=== PATIENT | female | born 1940 | race Caucasian/White ===

== ENCOUNTER 2017-03-04 14:24 | Inpatient (IN) | payer MEDICARE ==
[2017-03-04] VITALS (15 sets, daily range): BP systolic 162–226; BP diastolic 89–134
[~2017-03-04] VITALS: Ht 160 cm; Wt 65.1 kg
[~2017-03-04 14:24] MED LIST: ALEVE220 MG PO; AMLODIPINE BES1 CAP PO; AMLODIPINE10 M2 PO; ASPIRIN325 M1 PO; ATORVASTATIN CA20 MG PO; BACTRIM DS 8001 TAB PO; CEFTIN500 MG PO; CHEWABLE ASPIRI81 MG PO; CIPRO 500MG TA500 MG PO; CRESTOR20 MG PO; HYDROCHLOROTHIA25 M1 PO; KEFLEX500 M1 PO; LISINOPRIL 20MG20 MG OR; LISINOPRIL 20MG20 MG PO; LOPRESSOR 25MG.25 MG PO; MEDROL 4MG. DOSE4 MG PO; MELOXICAM7.5 MG PO; METOPROLOL TART50 MG PO; METOPROLOL25 MG PO; MEVACOR20 MG PO; NITROFURANTOIN100 M4 PO; NITROSTAT 0.4M0.4 MG SL; NORVASC 5MG. TAB5 MG PO; PHENERGAN W/CO473 ML PO; PRAVASTATIN40 MG PO; VICODIN 5/500 T1 TAB PO; ZESTRIL40 M1 PO; ZESTRIL40 MG PO
--- NOTE | 2017-03-04 15:07 | Urgent Treatment Center Report ---
See Addendum History of Present Issue Date/Time Seen by Provider 03/04/17 3226 Visit Reason Pt arrived:Walked Presenting Problem:PT ADVISES HER B/P WAS ELEVATED THIS MORNING AND SHE WAS NOT FEELING GOOD PT B/P NOT ELEVATED AT THIS TIME. PT HAS TAKEN HER B/P MEDICINE EARLIER TODAY Location if Accident: Onset of symptoms date/time:/ or onset unknown for:MEDICAL HX UNKNOWN Have you (or family members/close friends) recently traveled outside the [facility]? N If Yes, where/when: Have you had exposure to infectious disease within the past month? TB? Other? Specify: Source patient, family Exam Limitations no limitations Comment 76-year-old female presents today for hypertension. 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 Patient is on blood pressure medicine and she supposed to be taking it twice a day but over the last couple months has only been taking it once a day. So this may give her her regular dose and by the time she presented to the urgent treatment Center her blood pressure was down. Patient states she just feels weak and tired. Has a history of 2 strokes and 2 cardiac blockages and family states only 20 percent of her kidney function ALLERGIES Coded Allergies: acetaminophen (From DARVOCET-N) (03/04/17) propoxyphene (10/26/16) Home Medications Reported Medications Metoprolol Tartrate (Lopressor) 25 MG PO BID #60 TAB History Medical History General CAD? No Angina: Yes [place]: Yes Hypertension? Yes Hyperlipidemia? Yes CHF? No DVT? No PE? No COPD? No Asthma? No Anemia? No GERD? No Gastric ulcers? No GI Bleed? No Hernia? No Thyroid Problems? No Hypothyroidism? No CVA? No Seizures? No Diabetes? No Renal Insuffiency? No UTI? Yes Stones? No BPH? No GB Disease: No Nephritic Syndrome? No Asplenia? No Hepatitis? No Sickle Cell Disease? No Arthritis? No Migraines? No Cataracts? Yes Glaucoma? No MRSA? No HIV? No TB? No Anxiety? No Depression? 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 Immunization HX DT/Tetanus > 10 Years Ago Flu Refused Pneumonia Refuses Surgical Hx Previous Surgery?Y LEFT HIP REPAIR LOLLY Appendix BILATERAL CATARACTS LT FOOT/LEG SURGERY AORTIC ANEURYSM Family History Family HX Diabetes Yes CAD Yes Hypertension Yes Hyperlipidemia No Cancer Yes TB Yes Social History Smoking Hx Smoker: Current Every Day Smoker Tobacco: Yes Type Cigarettes Packs/day 1 1/2 - 2 Packs Alcohol Alcohol: No Review of Systems All Other Systems Reviewed and Negative Constitutional see HPI, malaise, weakness Physical Exam Vital Signs Vital Signs Date Time Temp Pulse Resp B/P Pulse O2 O2 Flow FiO2 Ox Delivery Rate 03/04 1440 97.7 76 16 115/96 98 03/04 1428 97.7 76 16 115/96 98 - WBC >12,000 or <4,000 or 10% bands? 2 or more SIRS Criteria Met? B/P:115/96 MAP:102 Creatinine >2.0? UA output<0.5ml/kg/hr for 2 hrs? Platelet count >100,000? Lactate >2.0mmol/1? INR >1.2 or PTT > than 60 sec? Evidence of Organ Dysfunction? Provider documented clinical suspician of infection? Sepsis Criteria Count: 0 Sepsis Risk: General Appearance normal appearance, no apparent distress Respiratory Status Yes: trachea midline, chest symmetrical, non tender chest. No: respiratory distress. Lung Sounds bilateral: normal breath sounds, lungs clear. 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 No Results/Orders Laboratory Tests 03/04/17 1552: Urine Color YELLOW, Urine Appearance Clear, Urine pH 7.0, Ur Specific [place] 1.015, Urine Protein 30, Urine Ketones NEGATIVE, Urine Blood TRACE H, Urine Nitrate NEGATIVE, Urine Bilirubin NEGATIVE, Urine Urobilinogen 0.2, Ur Leukocyte Esterase NEGATIVE, Urine Glucose NEGATIVE 03/04/17 1500: Sodium 139, Potassium 4.3, Chloride 102, Carbon Dioxide 29, BUN 26 H, Creatinine 2.2 H, Estimated Creat Clear 24 L, Estimated GFR (MDRD) 22 L, Glucose 100, Calcium 8.8, Total Bilirubin 0.3, AST 15, ALT 16, Alkaline Phosphatase 179 H, Creatine Kinase 113, CK-MB (CK-2) Rel Index 1.4, CK and CKMB Interp 1.6, Troponin I 0.05, Total Protein 8.1, Albumin 3.7, Globulin 4.4 H, Albumin/Globulin Ratio 0.8 L, WBC 7.3, RBC 4.63, Hgb 13.1, Hct 39.3, MCV 84.8, RDW 13.6, Plt Count 271, MPV 7.5, Gran % 60.3, Gran # 4.4, Lymphocytes % 22.1, Monocytes % 5.7, Eosinophils % 10.8, Basophils % 1.1, Lymphocytes # 1.6, Monocytes # 0.4, Eosinophils # 0.8 H, Basophils # 0.1, PUBS MCHC 33.2, MCH 28.2 Orders Procedure Date/time Status [facility] URINE DIPSTICK 03/04 1552 Complete 12 LEAD EKG-BESSON (INITIAL) 03/04 1450 Active ELECTROCARDIOGRAM REQUEST 03/04 1449 Active CBC WITH AUTO DIFF 03/04 1449 Complete CARDIAC ENZYMES 03/04 1449 Complete CHEM 12 PROFILE 03/04 1449 Complete Consult MD Physician Consult Consult/PCP Jorge Time Called 1613 Reason Pt. Condition Comments Discussed labs, x-ray, patient's complaint with Dr. Patel Departure Departure Time of Disposition 1614 Disposition DC Home or Self Care(routine) Clinical Impression Primary Impression: HTN (hypertension) Qualifiers: Hypertension type: secondary to other renal disorders Qualified Code: I15.1 - Hypertension secondary to other renal disorders Condition STABLE Patient Instructions High Blood Pressure Additional Instructions Take medication as prescribed Discussion with patient on proper way of taking medication Informed family to monitor blood pressure at home and keep a log for the PCP Follow-up with PCP this week Symptoms worsen or do not improve return or be seen in the ER Discharge Counseling Counseled pt/family regarding diagnosis, test results, home care, follow up needs at 1616
[2017-03-04 15:13] LABS: HEMOGLOBIN 13.1 g/dL (12.2-16.2); LYMPH # 1.6 K/mm3 (0.7-4.5); LYMPH % 22.1 % (10-50.0)
--- NOTE | 2017-03-04 15:36 | RADIOLOGY REPORT PS360 ---
CHEST(2 VIEWS-NOT PORTABLE) COMPARISON: PA and lateral chest 09/24/2013 HISTORY: Generalized weakness TECHNIQUE: PA and lateral chest FINDINGS: The lung jose are well expanded. There are diffuse interstitial fibrotic changes in the right upper lobe and in retrospect liver probably present previously. There are slightly accentuated bronchovascular markings at the right base likely chronic in nature. The left lung field is well expanded and clear. There is prominent aortic tortuosity with mild generalized cardio megaly with is no evidence of failure. There are mild degenerative changes of the mid thoracic spine. There is an aortic stent seen at the lower edge of the field of view in the upper abdomen IMPRESSION: Stable generalized cardio megaly overall heart size unchanged from the previous study in 2013, chronic changes right lung as described, doubt pneumonic infiltrate
[2017-03-04 15:58] LABS: URINE BILIRUBIN - DIPSTICK NEGATIVE (NEG); URINE BLOOD TRACE (NEG)
[2017-03-04] MEDS ORDERED: NORVASC 10MG. T10 MG PO (16:41)
--- NOTE | 2017-03-04 19:14 | Emergency Room Report ---
History of Present Illness Time Seen by 1903 Presenting Problem in Triage Pt arrived:Walked Presenting Problem:PT ADVISES HER B/P WAS ELEVATED THIS MORNING AND SHE WAS NOT FEELING GOOD PT B/P NOT ELEVATED AT THIS TIME. 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 N Clinical Suspician of Infection? N Mental Status: 1 - Regular (Normal Baseline) Sepsis Risk:Low Sepsis Risk Have you (or family members/close friends) recently traveled outside the [place]? N If Yes, where/when: Have you had exposure to infectious disease within the past month? TB? Other? 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 Noted to be in the 220's systolic, recommendation from Dr. Pozo to admit on Nipride gtts. Patient checked her BP at home today and noted it to be elevated. ALLERGIES Coded Allergies: acetaminophen (From [employer]VO[employer]ven WirelessT-N) (03/04/17) propoxyphene (10/26/16) Home Medications Reported Medications Metoprolol Tartrate (Lopressor) 25 MG PO BID #60 TAB History Medical History General CAD? No Angina: Yes [place]: Yes Hypertension? Yes Hyperlipidemia? Yes CHF? No DVT? No PE? No COPD? No Asthma? No Anemia? No GERD? No Gastric ulcers? No GI Bleed? No Hernia? No Thyroid Problems? No Hypothyroidism? No CVA? No Seizures? No Diabetes? No Renal Insuffiency? No End Stage Renal Disease? No UTI? Yes Stones? No BPH? No GB Disease: No Nephritic Syndrome? No Asplenia? No Hepatitis? No Sickle Cell Disease? No Arthritis? No Migraines? No Cataracts? Yes Glaucoma? No MRSA? No HIV? No TB? No Anxiety? No Depression? 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 Immunization Hx DT/Tetanus > 10 Years Ago Flu Refused Pneumonia Refuses Surgical Hx Previous Surgery?Y LEFT HIP REPAIR LOLLY Appendix BILATERAL CATARACTS LT FOOT/LEG SURGERY AORTIC ANEURYSM Family History Family Hx Diabetes Yes CAD Yes Hypertension Yes Hyperlipidemia No Cancer Yes TB Yes Social History Smoking Hx Smoker: Current Every Day Smoker Tobacco: Yes Type Cigarettes Packs/day 1 1/2 - 2 Packs Alcohol Alcohol: No Review of Systems All Other Systems Reviewed and Negative Physical Exam Vital Signs Vital Signs Date Time Temp Pulse Resp B/P Pulse O2 O2 Flow FiO2 Ox Delivery Rate 03/04 1825 97.7 66 20 226/134 96 03/04 1756 97.7 66 20 226/134 96 03/04 1715 68 20 234/132 96 03/04 1630 57 18 222/114 96 03/04 1440 97.7 76 16 115/96 98 03/04 1428 97.7 76 16 115/96 98 General Appearance normal appearance, WD/WN, no apparent distress Eye Exam - bilateral eye normal exam, bilateral eye PERRL, bilateral eye EOMI Neck normal inspection, non-tender, supple, full range of motion Respiratory Status Yes: trachea midline, chest symmetrical, non tender chest. No: respiratory distress, tender on palpation, use of accessory muscles, pain on inspiration, pain on expiration, productive cough, non productive cough. Lung Sounds bilateral: normal breath sounds, lungs clear. 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 No Results/Orders Laboratory Tests 03/04/17 1552: Urine Color YELLOW, Urine Appearance Clear, Urine pH 7.0, Ur Specific [place] 1.015, Urine Protein 30, Urine Ketones NEGATIVE, Urine Blood TRACE H, Urine Nitrate NEGATIVE, Urine Bilirubin NEGATIVE, Urine Urobilinogen 0.2, Ur Leukocyte Esterase NEGATIVE, Urine Glucose NEGATIVE 03/04/17 1500: Sodium 139, Potassium 4.3, Chloride 102, Carbon Dioxide 29, BUN 26 H, Creatinine 2.2 H, Estimated Creat Clear 24 L, Estimated GFR (MDRD) 22 L, Glucose 100, Calcium 8.8, Total Bilirubin 0.3, AST 15, ALT 16, Alkaline Phosphatase 179 H, Creatine Kinase 113, CK-MB (CK-2) Rel Index 1.4, CK and CKMB Interp 1.6, Troponin I 0.05, Total Protein 8.1, Albumin 3.7, Globulin 4.4 H, Albumin/Globulin Ratio 0.8 L, WBC 7.3, RBC 4.63, Hgb 13.1, Hct 39.3, MCV 84.8, RDW 13.6, Plt Count 271, MPV 7.5, Gran % 60.3, Gran # 4.4, Lymphocytes % 22.1, Monocytes % 5.7, Eosinophils % 10.8, Basophils % 1.1, Lymphocytes # 1.6, Monocytes # 0.4, Eosinophils # 0.8 H, Basophils # 0.1, PUBS MCHC 33.2, MCH 28.2 Current Medication Orders Sig/Tl Start time Last Medication Dose Route Stop Time Status Admin Amlodipine Besylate 10 MG ONCE ONE 03/04 1645 DC 03/04 PO 03/04 1646 1653 Amlodipine Besylate 0 .STK-MED ONE 03/04 1642 DC .ROUTE Orders Procedure Date/time Status Decision to admit 03/04 1912 Active [facility] URINE DIPSTICK 03/04 1552 Complete 12 LEAD EKG-BESSON (INITIAL) 03/04 1450 Active ELECTROCARDIOGRAM REQUEST 03/04 1449 Active CBC WITH AUTO DIFF 03/04 1449 Complete CARDIAC ENZYMES 03/04 1449 Complete CHEM 12 PROFILE 03/04 1449 Complete CM/EKG CM/EKG EKG rate, NSR, rhythm, no evid. of ischemic chgs, no ectopy, normal QRS, normal [place], normal EKG (SB LVH no change from prior) XRAY/CT/US XRAY/CT/US XRAY chest XR interpretation by reviewed by me (report reviewed) Xray Results abnormal (CM per radiology o/w nl) Consult MD Physician Consult [address] Smyth service call ok to admit; please consult Dr. Pozo with cardiology Physician Consult 2 Time Called 1911 Reason Pt. Condition Comments Dr. Pozo confirms his recommendation for Nipride gtts and admit SDU. Progress ED Progress Notes Date 03/04/17 Time 1932 Comment BP 240 systolic; admit urgently to SDU with order for Nipride gtts. Departure Departure Time of Disposition 1911 Disposition Still a Patient Clinical Impression Primary Impression: Malignant hypertension Secondary Impressions: CRI (chronic renal insufficiency) Qualifiers: Chronic kidney disease stage: unspecified stage Qualified Code: N18.9 - Chronic kidney disease, unspecified Condition STABLE Additional Instructions Take medication as prescribed Discussion with patient on proper way of taking medication Informed family to monitor blood pressure at home and keep a log for the PCP Follow-up with PCP this week Symptoms worsen or do not improve return or be seen in the ER Prescriptions Current Visit Scripts AMLODIPINE BESYLATE (Norvasc) 10 MG PO DAILY 7 Days ED Critical Care Critical Care No at 1935
--- NOTE | 2017-03-04 19:14 | Emergency Room Report ---
History of Present Illness Time Seen by 1903 Presenting Problem in Triage Pt arrived:Walked Presenting Problem:PT ADVISES HER B/P WAS ELEVATED THIS MORNING AND SHE WAS NOT FEELING GOOD PT B/P NOT ELEVATED AT THIS TIME. 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 N Clinical Suspician of Infection? N Mental Status: 1 - Regular (Normal Baseline) Sepsis Risk:Low Sepsis Risk Have you (or family members/close friends) recently traveled outside the [place]? N If Yes, where/when: Have you had exposure to infectious disease within the past month? TB? Other? Specify: Transferred from [facility] due to malignant hypertension. Noted to be in the 220's systolic, recommendation from Dr. Pozo to admit on Nipride gtts. Patient checked her BP at home today and noted it to be elevated. ALLERGIES Coded Allergies: acetaminophen (From DARVOGotaCopyT-N) (03/04/17) propoxyphene (10/26/16) Home Medications Reported Medications Metoprolol Tartrate (Lopressor) 25 MG PO BID #60 TAB History Medical History General CAD? No Angina: Yes [place]: Yes Hypertension? Yes Hyperlipidemia? Yes CHF? No DVT? No PE? No COPD? No Asthma? No Anemia? No GERD? No Gastric ulcers? No GI Bleed? No Hernia? No Thyroid Problems? No Hypothyroidism? No CVA? No Seizures? No Diabetes? No Renal Insuffiency? No End Stage Renal Disease? No UTI? Yes Stones? No BPH? No GB Disease: No Nephritic Syndrome? No Asplenia? No Hepatitis? No Sickle Cell Disease? No Arthritis? No Migraines? No Cataracts? Yes Glaucoma? No MRSA? No HIV? No TB? No Anxiety? No Depression? 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 Immunization Hx DT/Tetanus > 10 Years Ago Flu Refused Pneumonia Refuses Surgical Hx Previous Surgery?Y LEFT HIP REPAIR LOLLY Appendix BILATERAL CATARACTS LT FOOT/LEG SURGERY AORTIC ANEURYSM Family History Family Hx Diabetes Yes CAD Yes Hypertension Yes Hyperlipidemia No Cancer Yes TB Yes Social History Smoking Hx Smoker: Current Every Day Smoker Tobacco: Yes Type Cigarettes Packs/day 1 1/2 - 2 Packs Alcohol Alcohol: No Review of Systems All Other Systems Reviewed and Negative Physical Exam Vital Signs Vital Signs Date Time Temp Pulse Resp B/P Pulse O2 O2 Flow FiO2 Ox Delivery Rate 03/04 1825 97.7 66 20 226/134 96 03/04 1756 97.7 66 20 226/134 96 03/04 1715 68 20 234/132 96 03/04 1630 57 18 222/114 96 03/04 1440 97.7 76 16 115/96 98 03/04 1428 97.7 76 16 115/96 98 General Appearance normal appearance, WD/WN, no apparent distress Eye Exam - bilateral eye normal exam, bilateral eye PERRL, bilateral eye EOMI Neck normal inspection, non-tender, supple, full range of motion Respiratory Status Yes: trachea midline, chest symmetrical, non tender chest. No: respiratory distress, tender on palpation, use of accessory muscles, pain on inspiration, pain on expiration, productive cough, non productive cough. Lung Sounds bilateral: normal breath sounds, lungs clear. 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 No Results/Orders Laboratory Tests 03/04/17 1552: Urine Color YELLOW, Urine Appearance Clear, Urine pH 7.0, Ur Specific [place] 1.015, Urine Protein 30, Urine Ketones NEGATIVE, Urine Blood TRACE H, Urine Nitrate NEGATIVE, Urine Bilirubin NEGATIVE, Urine Urobilinogen 0.2, Ur Leukocyte Esterase NEGATIVE, Urine Glucose NEGATIVE 03/04/17 1500: Sodium 139, Potassium 4.3, Chloride 102, Carbon Dioxide 29, BUN 26 H, Creatinine 2.2 H, Estimated Creat Clear 24 L, Estimated GFR (MDRD) 22 L, Glucose 100, Calcium 8.8, Total Bilirubin 0.3, AST 15, ALT 16, Alkaline Phosphatase 179 H, Creatine Kinase 113, CK-MB (CK-2) Rel Index 1.4, CK and CKMB Interp 1.6, Troponin I 0.05, Total Protein 8.1, Albumin 3.7, Globulin 4.4 H, Albumin/Globulin Ratio 0.8 L, WBC 7.3, RBC 4.63, Hgb 13.1, Hct 39.3, MCV 84.8, RDW 13.6, Plt Count 271, MPV 7.5, Gran % 60.3, Gran # 4.4, Lymphocytes % 22.1, Monocytes % 5.7, Eosinophils % 10.8, Basophils % 1.1, Lymphocytes # 1.6, Monocytes # 0.4, Eosinophils # 0.8 H, Basophils # 0.1, PUBS MCHC 33.2, MCH 28.2 Current Medication Orders Sig/Tl Start time Last Medication Dose Route Stop Time Status Admin Amlodipine Besylate 10 MG ONCE ONE 03/04 1645 DC 03/04 PO 03/04 1646 1653 Amlodipine Besylate 0 .STK-MED ONE 03/04 1642 DC .ROUTE Orders Procedure Date/time Status Decision to admit 03/04 1912 Active [facility] URINE DIPSTICK 03/04 1552 Complete 12 LEAD EKG-BESSON (INITIAL) 03/04 1450 Active ELECTROCARDIOGRAM REQUEST 03/04 1449 Active CBC WITH AUTO DIFF 03/04 1449 Complete CARDIAC ENZYMES 03/04 1449 Complete CHEM 12 PROFILE 03/04 1449 Complete CM/EKG CM/EKG EKG rate, NSR, rhythm, no evid. of ischemic chgs, no ectopy, normal QRS, normal [place], normal EKG (SB LVH no change from prior) XRAY/CT/US XRAY/CT/US XRAY chest XR interpretation by reviewed by me (report reviewed) Xray Results abnormal (CM per radiology o/w nl) Consult MD Physician Consult [address] Smyth service call ok to admit; please consult Dr. Pozo with cardiology Physician Consult 2 Time Called 1911 Reason Pt. Condition Comments Dr. Pozo confirms his recommendation for Nipride gtts and admit SDU. Progress ED Progress Notes Date 03/04/17 Time 1932 Comment BP 240 systolic; admit urgently to SDU with order for Nipride gtts. Departure Departure Time of Disposition 1911 Disposition Still a Patient Clinical Impression Primary Impression: Malignant hypertension Secondary Impressions: CRI (chronic renal insufficiency) Qualifiers: Chronic kidney disease stage: unspecified stage Qualified Code: N18.9 - Chronic kidney disease, unspecified Condition STABLE Additional Instructions Take medication as prescribed Discussion with patient on proper way of taking medication Informed family to monitor blood pressure at home and keep a log for the PCP Follow-up with PCP this week Symptoms worsen or do not improve return or be seen in the ER Prescriptions Current Visit Scripts AMLODIPINE BESYLATE (Norvasc) 10 MG PO DAILY 7 Days ED Critical Care Critical Care No at 1935
[2017-03-05] VITALS (47 sets, daily range): BP systolic 109–197; BP diastolic 62–117
[2017-03-05 06:27] LABS: HEMOGLOBIN 12.3 g/dL (12.2-16.2); LYMPH # 1.6 K/mm3 (0.7-4.5); LYMPH % 25.2 % (10-50.0)
--- NOTE | 2017-03-05 10:31 | HISTORY AND PHYSICAL REPORT ---
History and Physical (FCA) Date of admission: 03/04/17 Chief complaint: elevated blood pressure History: History of Present Illness: 76 year old female with a history of CAD and HTN presented to [facility] urgent treatment clinic yesterday complaining of elevated blood pressure. A home health nurse was visiting her home to see a different resident and the patient asked for her blood pressure to be checked due to not feeling well. BP was in the 240/120 range and she was instructed to come to the ER by the nurse. Patient has been followed by a Dr. Harrison in [facility] for her primary care. She had been using Metoprolol once daily to control her BP, but it had been prescribed twice daily. Patient is a former patient of Dr. Vo's at [facility] and would like to reestablish care due to recently moving back into the community. After arriving at the [facility], patient's BP was very elevated and was unable to be controlled with oral medication. Dr. Pozo was consulted and he recommened admission to [facility] with a Nitroprusside drip for BP control. Past Medical History: Medical History: CAD? Yes Angina: Yes CA: Yes Hypertension? Yes Hyperlipidemia? Yes CHF? No DVT? No PE? No COPD? Yes Asthma? No Anemia? No GERD? No Gastric ulcers? No GI Bleed? No Hernia? No Thyroid Problems? No Hypothyroidism? No Seizures? No Diabetes? No Renal Insuffiency? Yes UTI? Yes Stones? No BPH? No GB Disease: No Nephritic Syndrome? No Asplenia? No Hepatitis? No Sickle Cell Disease? No Arthritis? No Migraines? No Cataracts? Yes Glaucoma? No MRSA? No HIV? No TB? No Anxiety? No Depression? No Cancer? Yes Site: UTERINE Surgical history: Previous Surgery?Y LEFT HIP REPAIR LOLLY Appendix BILATERAL CATARACTS LT FOOT/LEG SURGERY AORTIC ANEURYSM Medications: Reported Medications Metoprolol Tartrate (Lopressor) 25 MG PO BID #60 TAB Allergies: Coded Allergies: acetaminophen (From DARVOCET-N) (03/04/17) propoxyphene (10/26/16) Family History: Family history: Postive for: CAD, HTN. Social History: Smoking Hx Tobacco: Yes Smoker: Current Every Day Smoker Type: Cigarettes Packs/day: < 1 Pack Are you exposed to second hand No Alcohol: Alcohol: No Hx of Drug Use: Drug Use? No Patient's support system is: good Review of Systems: Patient unresponsive? No Constitutional No: fatigue. ENT No: nose bleed. Cardiovascular No: chest pain. Respiratory No: productive cough (sputum). GI No: diarrhea, nausea, vomitting. (female) No: hematuria. Skin No: rash. Neurological Positive for: gait problem (for past 50 years). No: dizziness. Eyes No: vision loss. Musculoskeletal No: extremity swelling. Psychiatric No: anxious, depression. Physical Exam: Vital signs: Vital Signs Date Time Temp Pulse Resp B/P Pulse O2 O2 Flow FiO2 Ox Delivery Rate 03/05 1000 78 18 146/89 95 ROOM AIR 03/05 0900 84 18 147/79 94 ROOM AIR 03/05 0835 80 18 160/94 94 ROOM AIR 03/05 0835 97.6 60 16 178/95 97 / 0800 60 16 178/95 97 ROOM AIR 03/05 0800 60 16 178/95 97 / 0758 97.6 58 18 143/76 95 / 0723 97.6 / 0700 97.6 58 18 143/76 95 ROOM AIR 03/05 0615 56 22 135/78 92 ROOM AIR 03/05 0552 54 156/80 94 ROOM AIR 03/05 0535 76 109/62 93 ROOM AIR 03/05 0515 60 20 180/98 93 ROOM AIR / 0500 61 187/103 93 ROOM AIR / 0415 97.9 71 20 143/65 94 / 0315 61 20 143/65 94 ROOM AIR 03/05 0215 73 22 149/79 95 ROOM AIR / 0145 68 143/92 94 ROOM AIR / 0115 65 18 163/94 94 ROOM AIR / 0100 73 18 156/84 94 ROOM AIR / 0030 75 20 166/94 95 ROOM AIR 03/05 0010 98.4 77 20 154/82 96 ROOM AIR 03/04 2355 75 18 162/89 94 ROOM AIR 03/04 2340 80 20 171/104 97 ROOM AIR 03/04 2320 71 20 197/109 95 ROOM AIR / 2305 76 18 193/115 95 ROOM AIR 03/04 2250 67 18 193/107 94 ROOM AIR 03/04 2235 68 20 188/96 94 ROOM AIR 03/04 2220 66 22 196/105 95 ROOM AIR 03/04 2205 65 20 188/110 97 ROOM AIR 03/04 2200 67 22 200/114 97 ROOM AIR 03/04 2145 80 20 208/118 98 ROOM AIR 03/04 2144 72 03/04 2144 98.6 63 20 201/111 03/044 96 ROOM AIR 03/04 2140 98.6 84 18 207/113 97 ROOM AIR 03/045 98.6 77 18 218/121 96 ROOM AIR 03/04 2021 98.6 72 22 213/122 96 ROOM AIR 03/04 1949 97.7 79 14 194/100 97 03/04 1933 79 14 200/106 97 03/04 1825 97.7 66 20 226/134 96 03/04 1756 97.7 66 20 226/134 96 03/04 1715 68 20 234/132 96 03/04 1630 57 18 222/114 96 03/04 1440 97.7 76 16 115/96 98 03/04 1428 97.7 76 16 115/96 98 1ST Vital Signs Result Date Time Pulse Ox 98 03/04 1428 B/P 115/96 03/04 1428 Temp 97.7 03/04 1428 Pulse 76 03/04 1428 Resp 16 03/04 1428 O2 Delivery ROOM AIR 03/04 2021 Exam: General appearance: alert, awake, no acute distress Eyes: anicteric ENT: mucous membranes moist Neck: supple Cardiovascular: regular rate & rhythm Respiratory: good air movement, basilar rales (few) ABD: normal bowel sounds, soft, no tenderness Extremities: no peripheral edema (ANA PAULA hose in place) Skin: warm Lab data: Labs: Laboratory Tests 03/05/17 0530: Sodium 139, Potassium 3.6, Chloride 103, Carbon Dioxide 27, BUN 27 H, Creatinine 1.9 H, Estimated Creat Clear 25 L, Estimated GFR (MDRD) 26 L, Glucose 113 H, Calcium 9.0, WBC 6.2, RBC 4.42, Hgb 12.3, Hct 37.6, MCV 84.9, RDW 13.6, Plt Count 252, MPV 7.4, Gran % 53.3, Gran # 3.3, Lymphocytes % 25.2, Monocytes % 7.7, Eosinophils % 12.8 H, Basophils % 1.1, Lymphocytes # 1.6, Monocytes # 0.5, Eosinophils # 0.8 H, Basophils # 0.1, PUBS MCHC 32.6, MCH 27.7 03/04/17 1552: Urine Color YELLOW, Urine Appearance Clear, Urine pH 7.0, Ur Specific [place] 1.015, Urine Protein 30, Urine Ketones NEGATIVE, Urine Blood TRACE H, Urine Nitrate NEGATIVE, Urine Bilirubin NEGATIVE, Urine Urobilinogen 0.2, Ur Leukocyte Esterase NEGATIVE, Urine Glucose NEGATIVE 03/04/17 1500: Sodium 139, Potassium 4.3, Chloride 102, Carbon Dioxide 29, BUN 26 H, Creatinine 2.2 H, Estimated Creat Clear 24 L, Estimated GFR (MDRD) 22 L, Glucose 100, Calcium 8.8, Total Bilirubin 0.3, AST 15, ALT 16, Alkaline Phosphatase 179 H, Creatine Kinase 113, CK-MB (CK-2) Rel Index 1.4, CK and CKMB Interp 1.6, Troponin I 0.05, Total Protein 8.1, Albumin 3.7, Globulin 4.4 H, Albumin/Globulin Ratio 0.8 L, WBC 7.3, RBC 4.63, Hgb 13.1, Hct 39.3, MCV 84.8, RDW 13.6, Plt Count 271, MPV 7.5, Gran % 60.3, Gran # 4.4, Lymphocytes % 22.1, Monocytes % 5.7, Eosinophils % 10.8, Basophils % 1.1, Lymphocytes # 1.6, Monocytes # 0.4, Eosinophils # 0.8 H, Basophils # 0.1, PUBS MCHC 33.2, MCH 28.2 Diagnosis(es): 1. Malignant hypertensive urgency Status: Acute 2. CRI (chronic renal insufficiency) Status: Chronic 3. Coronary arteriosclerosis Status: Chronic 4. Nicotine dependence, uncomplicated Status: Chronic Plan: Patient admitted and treated per Dr. Pozo's direction. BP lower today will begin to transition to oral anti-hypertensive drugs. at 1030
[2017-03-06] VITALS (51 sets, daily range): BP systolic 123–199; BP diastolic 8–126
--- NOTE | 2017-03-06 08:16 | ACUTE CARE PROGRESS NOTE (QUA) ---
Progress Notes Subjective Date 03/06/17 Time 0813 Note Patient with no new complaints this morning. Nursing reports: Still on Nitroprusside drip Objective Findings Laboratory Tests 03/06/17 0440: Sodium 137, Potassium 4.2, Chloride 104, Carbon Dioxide 27, BUN 29 H, Creatinine 1.9 H, Estimated Creat Clear 25 L, Estimated GFR (MDRD) 26 L, Glucose 108 H, Calcium 9.0 Vital Signs Date Time Temp Pulse Resp B/P Pulse O2 O2 Flow FiO2 Ox Delivery Rate 03/06 0800 98.1 53 18 181/74 92 ROOM AIR 03/06 0800 56 16 139/78 93 ROOM AIR 03/06 0730 52 16 132/70 91 09/ 0730 52 16 132/70 91 ROOM AIR 03/06 0645 53 151/74 92 ROOM AIR 03/06 0615 58 191/110 95 ROOM AIR 03/06 0600 57 20 179/92 98 ROOM AIR 03/06 0500 57 20 140/71 94 ROOM AIR 03/06 0415 57 143/77 95 ROOM AIR 03/06 0400 97.9 58 20 159/85 95 ROOM AIR 03/06 0358 98.4 56 18 139/76 94 03/06 0330 59 147/71 93 ROOM AIR 03/06 0300 55 20 146/81 94 ROOM AIR 03/06 0245 57 144/79 94 ROOM AIR 03/06 0230 63 130/67 94 ROOM AIR 03/06 0215 58 149/81 95 ROOM AIR 03/06 0200 62 18 170/80 96 ROOM AIR 03/06 0145 69 146/66 94 ROOM AIR 03/06 0139 62 165/89 94 ROOM AIR 03/06 0115 65 190/126 94 ROOM AIR 03/06 0100 69 18 150/93 93 ROOM AIR 03/06 0030 60 148/85 94 ROOM AIR 03/06 0000 98.4 62 20 165/93 94 ROOM AIR 03/05 2345 67 195/117 96 ROOM AIR 03/05 2330 66 178/108 93 ROOM AIR 03/05 2315 62 158/80 95 ROOM AIR 03/05 2300 57 20 137/76 93 ROOM AIR 03/05 2245 57 139/74 92 ROOM AIR 03/05 2200 52 18 152/79 93 ROOM AIR 03/05 2115 58 158/91 96 ROOM AIR 03/05 2100 64 195/102 98 ROOM AIR 03/05 2000 98.3 61 22 159/88 94 ROOM AIR 03/05 1955 98.3 63 22 159/88 93 / 1905 59 16 143/76 93 03/05 1900 60 143/76 93 ROOM AIR 03/05 1800 68 18 160/90 94 ROOM AIR 03/05 1735 63 20 197/110 98 / 1700 61 20 181/103 96 03/05 1700 61 20 181/103 96 ROOM AIR 03/05 1640 63 20 180/102 97 / 1640 97.6 63 18 127/65 95 / 1637 63 18 180/102 97 ROOM AIR 03/05 1600 60 18 150/87 96 ROOM AIR 03/05 1500 68 18 159/89 96 ROOM AIR 03/05 1430 63 18 127/65 95 03/05 1400 60 18 131/68 95 ROOM AIR 03/05 1300 63 18 168/85 98 ROOM AIR 03/05 1225 66 18 168/114 97 03/05 1215 66 18 168/114 97 ROOM AIR 03/05 1200 65 18 145/79 94 ROOM AIR 03/05 1154 67 20 156/86 96 03/05 1121 77 20 140/81 95 03/05 1100 74 20 142/79 94 ROOM AIR 03/05 1000 78 18 146/89 95 ROOM AIR 03/05 0900 84 18 147/79 94 ROOM AIR 03/05 0835 80 18 160/94 94 ROOM AIR 03/05 0835 97.6 60 16 178/95 97 I&O Past 24 Hrs-ending at 0700 09/18 0700 Intake Total 1041 Output Total 500 Balance 541 Last VS-Temp:97.9 B/P:139/78 Pulse:56 Resp:16 SaO2:93 ROOM AIR Last weight lbs:143 oz:2 K.92 Method:Bed Scales Exam General appearance: alert, awake, no acute distress ENT: mucous membranes moist Cardiovascular: regular rate & rhythm Respiratory: clear to auscultation Extremities: no peripheral edema (ANA PAULA hose in place) Assessment/Plan Problem List 1. Malignant hypertensive urgency Status: Acute 2. CRI (chronic renal insufficiency) Status: Chronic 3. Coronary arteriosclerosis Status: Chronic 4. Nicotine dependence, uncomplicated Status: Chronic This inpt stay is expected to cross 2 MNs from start of care Yes Comments: Continue current treatment, await cardiology recommendations. at 0815
--- NOTE | 2017-03-06 11:42 | CONSULT NOTE ---
Standard Demographics Patient Demo Date of Consultation: 03/06/17 Referring Provider: Srinivas Smyth MD Reason for Consultation: Malignant HTN PRIMARY DIAGNOSIS: MALIGNANT HYPERTENSION Problem list Problem list: 1. History of coronary artery disease. A. abnormal stress test, 04/2010, with inferolateral ischemia. B. Cardiac catheterization, 04/2010, Dr. Mcfarland, unsuccessful attempt at opening chronic RCA occlusion. Left anterior descending stenosis of 40-50 percent noted. Normal LV function. C. Cardiac catheterization, 10/2014, Dr. Doug Pozo, chronic RCA occlusion with LEFT to RIGHT collaterals. Medical therapy recommended. Abdominal aortogram performed at the same time, normal renal arteries noted. Tortuous aorta with aneurysm noted, referred to Dr. Rivera for further evaluation 2. Hypertension. 3. Hyperlipidemia. 4. Hypothyroidism. 5. History of uterine cancer. 6. History of mild carotid disease with 20-49% right internal carotid stenosis , 05/2010. 7. Ongoing tobacco abuse, currently smoking only 3-4 cigarettes a day. 8. CKD, stage 3 A. Atrophy of right kidney, CT of abdomen, 10/2016 B. Normal renal arteries by cath, 10/2014 9. PAD A. Aortoiliac stenting, 2014 10. Abnormal electrocardiogram with left ventricular hypertrophy and poor R wave progression anteriorly History of present illness: History of present illness: 76-year-old white female admitted for malignant hypertension. Patient has had a two-week history of headaches and blurred vision. She recently moved in with her daughter in this area about 5 weeks ago and they have not been checking her blood pressure. Home health nurse was at the house for different person and was asked to check the blood pressure of frida Vee. Blood pressure noted to be in the 230/120 range with recommendation to come to the emergency department for evaluation. Patient was started on nitroglycerin drip after consultation by phone with Dr. Pozo. Patient is not forthcoming with any chest discomfort prior to admission. She denies any chest pain since admission. Initial troponin was in normal range. Electrocardiogram shows sinus rhythm with LEFT axis deviation and left ventricular hypertrophy with repolarization abnormality. Etiology consulted for evaluation and recommendations. Patient remains on nipride drip. Telemetry shows brief bradycardia into the high 30s to low 40s at times. Past Medical History: General: Hypertension Yes Seizures No TB No COPD Yes Asthma No Diabetes No Angina Yes MD Yes Hyperlipidemia Yes Urinary No Cancer Yes Rheumatic H.D. No Ulcers No MRSA No GB Disease No Past Surgical HX: Previous Surgery?Y LEFT HIP REPAIR LOLLY Appendix BILATERAL CATARACTS LT FOOT/LEG SURGERY AORTIC ANEURYSM Allergies Coded Allergies: acetaminophen (From DARVOCET-N) (03/04/17) propoxyphene (10/26/16) Home medications: Reported Medications Metoprolol Tartrate (Lopressor) 25 MG PO BID #60 TAB Current Medications: Current Medications Amlodipine Besylate 10 MG BID PO Amlodipine Besylate 10 MG ONCE ONE PO (DC) Amlodipine Besylate 0 .STK-MED ONE .ROUTE (DC) Amlodipine Besylate 10 MG DAILY PO (DC) Acetaminophen 500 MG Q4HP PRN PO (CKD) Metoprolol Tartrate 25 MG BID PO Sodium Chloride 10 ML PRN PRN IV Sodium Nitroprusside 50 MG .Q25H IV Dextrose/Water 250 ML Immunization HX DT/Tetanus > 10 Years Flu Refused Pneumonia Refuses TB Test in last year No Family history Family HX Family Hx Insignificant No Diabetes Yes CAD Yes Hypertension Yes Hyperlipidemia No Cancer Yes TB Yes Social Hx: Smoking HX Tobacco Yes Type Cigarettes Packs/day < 1 PACK Are you/the child exposed to second-hand smoke: No Alcohol Alcohol: No Hx of Drug Use Drug Use? No Review of systems: Constitutional weakness. Respiratory SOB with excertion. Cardiovascular see HPI, chest pain Gastrointestinal/Abdominal No no symptoms reported Genitourinary No: no symptoms reported. Musculoskeletal other (chronic lower extremity discom). Neurological No: no symptoms reported. Exam: Admission Vital Signs: 1ST Vital Signs Result Date Time Pulse Ox 98 03/04 1428 B/P 115/96 03/04 1428 Temp 97.7 03/04 1428 Pulse 76 03/04 1428 Resp 16 03/04 1428 O2 Delivery ROOM AIR 03/04 2021 Last Vital Signs: Vital Signs Result Date Time Pulse Ox 95 03/06 1115 B/P 182/122 03/06 1115 Pulse 74 03/06 1115 Resp 18 03/06 1115 O2 Delivery ROOM AIR 03/06 1115 Temp 98.1 03/06 0834 Exam General appearance: alert, awake, no acute distress Neck: no carotid bruit, no JVD Cardiovascular: regular rate & rhythm, no murmur Respiratory: clear to auscultation, good air movement ABD: soft, no tenderness Extremities: moves all, no peripheral edema Neuro: alert, intact, oriented Laboratory data: Laboratory Tests 03/06/17 0440: Sodium 137, Potassium 4.2, Chloride 104, Carbon Dioxide 27, BUN 29 H, Creatinine 1.9 H, Estimated Creat Clear 25 L, Estimated GFR (MDRD) 26 L, Glucose 108 H, Calcium 9.0 03/05/17 0530: Triglycerides 118, Cholesterol 199, LDL Cholesterol 124.4, VLDL Cholesterol 23.6 , HDL Cholesterol 51.0, TSH 2.43 03/05/17 0530: Sodium 139, Potassium 3.6, Chloride 103, Carbon Dioxide 27, BUN 27 H, Creatinine 1.9 H, Estimated Creat Clear 25 L, Estimated GFR (MDRD) 26 L, Glucose 113 H, Calcium 9.0, WBC 6.2, RBC 4.42, Hgb 12.3, Hct 37.6, MCV 84.9, RDW 13.6, Plt Count 252, MPV 7.4, Gran % 53.3, Gran # 3.3, Lymphocytes % 25.2, Monocytes % 7.7, Eosinophils % 12.8 H, Basophils % 1.1, Lymphocytes # 1.6, Monocytes # 0.5, Eosinophils # 0.8 H, Basophils # 0.1, PUBS MCHC 32.6, MCH 27.7 03/04/17 1552: Urine Color YELLOW, Urine Appearance Clear, Urine pH 7.0, Ur Specific [place] 1.015, Urine Protein 30, Urine Ketones NEGATIVE, Urine Blood TRACE H, Urine Nitrate NEGATIVE, Urine Bilirubin NEGATIVE, Urine Urobilinogen 0.2, Ur Leukocyte Esterase NEGATIVE, Urine Glucose NEGATIVE 03/04/17 1500: Sodium 139, Potassium 4.3, Chloride 102, Carbon Dioxide 29, BUN 26 H, Creatinine 2.2 H, Estimated Creat Clear 24 L, Estimated GFR (MDRD) 22 L, Glucose 100, Calcium 8.8, Total Bilirubin 0.3, AST 15, ALT 16, Alkaline Phosphatase 179 H, Creatine Kinase 113, CK-MB (CK-2) Rel Index 1.4, CK and CKMB Interp 1.6, Troponin I 0.05, Total Protein 8.1, Albumin 3.7, Globulin 4.4 H, Albumin/Globulin Ratio 0.8 L, WBC 7.3, RBC 4.63, Hgb 13.1, Hct 39.3, MCV 84.8, RDW 13.6, Plt Count 271, MPV 7.5, Gran % 60.3, Gran # 4.4, Lymphocytes % 22.1, Monocytes % 5.7, Eosinophils % 10.8, Basophils % 1.1, Lymphocytes # 1.6, Monocytes # 0.4, Eosinophils # 0.8 H, Basophils # 0.1, PUBS MCHC 33.2, MCH 28.2 Plan: Assessment: 1. Malignant hypertension, currently on nitroprusside drip 2. Known coronary artery disease, clinically stable 3. Continued tobacco use, nicotine patches recommended. 4. History of peripheral arterial disease status post aorto iliac stenting 5. Chronic kidney disease, stage III with recent CT of the abdomen showing RIGHT kidney atrophy Recommendations: 1. Increase Norvasc to 10 mg twice a day. 2. Add hydrochlorothiazide 50 mg daily. 3. Will change metoprolol to Coreg 6.25 mg twice a day and titrate up as blood pressure and pulse allow. 4. We'll obtain an echocardiogram to evaluate LEFT ventricular size, function and valve status. at 0731
[2017-03-07] VITALS (32 sets, daily range): BP systolic 118–171; BP diastolic 70–98
--- NOTE | 2017-03-07 05:48 | RADIOLOGY REPORT PS360 ---
ECHO ADULT PROCEDURE: INDICATIONS FOR THE TEST: Chest pain COPDX Heart Murmur Tobacco SmokingX Palpitations Fatigue Syncope Edema HypertensionXDiabetes Mellitus Rheumatic Fever SOB HOOKER Obesity HyperlipidemiaX Family History HD Additional History PAD PATIENT INFORMATION HEIGHT: 63 WEIGHT:143 GENDER: Female B/P:182/122 2-D/M-MODE INTERPRETATION: 2-D MEASUREMENTS OBSERVED VALUES IN CMS Right Ventricular Dimension (RVDd) 1.8 Interventricular Septum (Thickness)(IVsd) 1.4 Left Ventricular Internal Dimensions(LVIDd) 6.0 Left Ventricular Posterior Wall (Thickness)(LVPWd) 1.2 Aortic Root 3.3 Aortic Cusp Separation 1.9 Left Atrial Dimensions (LAD) 3.7 2D 1. Left atrium is mildly enlarged, left ventricle is mildly dilated, there is mild concentric left ventricular hypertrophy present, visually estimated ejection fraction approximately 40%, left ventricle is mildly globally hypokinetic. 2. The right atrium and right ventricle are relatively normal size and function. 3. The aortic valve is thickened and calcified, leaflet continue to display mobility. 4. The mitral and tricuspid valve leaflets are minimally thickened. 5. The pulmonic valve is poorly visualized. 6. No significant pericardial effusion noted. DOPPLER INTERROGATION: Doppler interrogation of the aortic, mitral and tricuspid valve reveals presence of mild mitral and tricuspid regurgitation, tricuspid regurgitant jet velocity is insufficient for calculation of the right ventricular systolic pressure, grade 1 diastolic dysfunction seen without tissue Doppler evidence of raised left atrial pressure. CONCLUSION: 1. Mildly enlarged left atrium, mildly dilated left ventricle, visually estimated ejection fraction 40%, left ventricle is mildly globally hypokinetic, there is mild concentric left ventricular hypertrophy present, grade 1 diastolic dysfunction seen without tissue Doppler evidence of raised left atrial pressure. 2. Thickened and calcified aortic valve without aortic stenosis aortic insufficiency. 3. Mild mitral and tricuspid regurgitation. 4. No significant pericardial effusion noted.
--- NOTE | 2017-03-07 07:35 | ACUTE CARE PROGRESS NOTE (QUA) ---
Progress Notes Subjective Date 03/07/17 Time 0732 Note 76 yo WF in bed in NAD. Slept well overnight. No chest pain or SOA. Nursing relates weaning down on Nipride but still on low dose. Objective Findings Last VS-Temp:98.1 B/P:160/86 Pulse:58 Resp:16 SaO2:93 ROOM AIR Last weight lbs:143 oz:8 K.091 Method:Bed Scales Exam General appearance: alert, awake, no acute distress Cardiovascular: regular rate & rhythm Respiratory: clear to auscultation Extremities: moves all, no peripheral edema Neuro: alert, intact, oriented Reviewed: medications, vital signs, lab results Assessment/Plan Problem List 1. Malignant hypertensive urgency Status: Acute Assessment/Plan: Improving on medication changes. Push to get off nipride today. 2. CRI (chronic renal insufficiency) Status: Chronic Assessment/Plan: Stable. Repeat BMP in AM. Avoiding ERASTO/ARB due to CKD stage 3. Qualifiers: Chronic kidney disease stage: unspecified stage Qualified Code: N18.9 - Chronic kidney disease, unspecified 3. Coronary arteriosclerosis Status: Chronic Assessment/Plan: Clinically stable. 4. Nicotine dependence, uncomplicated Status: Chronic 5. Cardiomyopathy due to hypertension Assessment/Plan: Metoprolol switched to coreg yesterday. Qualifiers: Heart failure presence: without heart failure Qualified Code: I11.9 - Hypertensive heart disease without heart failure 6. Hyperlipidemia Assessment/Plan: start statin Qualifiers: Hyperlipidemia type: mixed hyperlipidemia Qualified Code: E78.2 - Mixed hyperlipidemia Patient condition Stable Plan: start statin. Continue current HTN meds and try to get off nipride. This inpt stay is expected to cross 2 MNs from start of care Yes at 0741
--- NOTE | 2017-03-07 08:27 | ACUTE CARE PROGRESS NOTE (QUA) ---
Progress Notes Subjective Date 03/07/17 Time 0825 Note Patient fels much better today, no new complaints. Objective Findings Vital Signs Date Time Temp Pulse Resp B/P Pulse O2 O2 Flow FiO2 Ox Delivery Rate 03/07 0640 98.1 58 16 160/86 93 03/07 0600 98.1 58 16 161/80 93 ROOM AIR 03/07 0508 98.0 54 17 122/74 93 09/ 0500 54 17 122/74 93 ROOM AIR 03/07 0421 98.0 63 20 118/72 92 03/07 0416 98.0 63 20 118/72 92 ROOM AIR 03/07 0300 97.9 60 18 146/84 93 ROOM AIR 03/07 0300 97.9 60 18 146/84 93 03/07 0200 97.9 57 20 135/76 91 09/ 0200 57 20 135/76 91 ROOM AIR 03/07 0100 97.9 59 20 150/90 94 ROOM AIR 03/07 0000 98.2 65 17 127/77 94 09/ 0000 65 17 127/77 94 ROOM AIR 03/06 2300 65 20 142/86 91 ROOM AIR 03/06 2200 98.2 60 20 137/82 90 09/18 2200 60 20 137/82 90 ROOM AIR 18 2100 70 20 141/83 90 ROOM AIR 18 2045 98.2 65 20 176/93 94 /18 2045 65 20 176/93 94 ROOM AIR 03/06 2000 98.2 64 20 145/77 94 09/18 1999 98.2 64 20 145/77 94 ROOM AIR 03/06 1959 98.2 64 20 135/77 91 09/18 1900 61 18 145/80 93 ROOM AIR 18 1800 84 18 150/92 96 09/18 1800 75 18 150/92 95 ROOM AIR 09/18 1752 64 18 190/99 94 09/18 1745 64 18 173/99 95 ROOM AIR /18 1745 64 18 173/99 95 09/18 1630 98.2 65 18 143/77 96 09/18 1600 98.2 55 20 134/79 94 ROOM AIR /18 1500 60 18 156/77 96 ROOM AIR 09/18 1445 66 18 165/95 94 09/18 1430 63 18 123/8 95 09/18 1415 61 18 165/95 95 09/18 1400 59 18 138/79 95 ROOM AIR /18 1300 58 18 153/101 96 ROOM AIR 18 1243 52 18 149/80 95 ROOM AIR /18 1230 56 18 135/74 94 09/18 1230 56 18 135/74 94 ROOM AIR /18 1205 69 18 199/116 96 09/18 1205 69 18 199/116 96 09/18 1200 98.4 09/18 1115 74 18 182/122 95 09/18 1115 74 18 182/122 95 ROOM AIR /18 1112 70 18 170/98 95 09/18 1100 70 18 170/98 95 09/18 1039 72 18 150/113 93 09/18 1039 72 18 150/113 93 ROOM AIR 03/06 1030 38 140/103 95 ROOM AIR 09/18 1000 69 18 177/107 93 09/18 1000 69 18 177/107 93 ROOM AIR /18 0915 60 18 179/103 93 /18 0915 60 18 179/103 93 ROOM AIR /18 0834 98.1 62 16 172/99 94 /18 0830 62 16 172/99 94 /18 0830 62 16 172/99 94 ROOM AIR I&O Past 24 Hrs-ending at 0700 03/07 0700 Intake Total Output Total 900 Balance -900 Last VS-Temp:98.1 B/P:160/86 Pulse:58 Resp:16 SaO2:93 ROOM AIR Last weight lbs:143 oz:8 K.091 Method:Bed Scales Exam General appearance: alert, awake, no acute distress Cardiovascular: regular rate & rhythm Respiratory: clear to auscultation Extremities: no peripheral edema Assessment/Plan Problem List 1. Malignant hypertensive urgency Status: Acute 2. CRI (chronic renal insufficiency) Status: Chronic 3. Coronary arteriosclerosis Status: Chronic 4. Nicotine dependence, uncomplicated Status: Chronic 5. Cardiomyopathy due to hypertension 6. Hyperlipidemia This inpt stay is expected to cross 2 MNs from start of care Yes Comments: Improving, turn Nitroprusside drip off today, monitor BP. at 0850
[2017-03-08] VITALS: BP 118/84
[2017-03-08 00:28] VITALS: BP 142/74
[2017-03-08 04:15] VITALS: BP 156/82
[2017-03-08 07:35] VITALS: BP 164/89
--- NOTE | 2017-03-08 08:00 | ACUTE CARE PROGRESS NOTE (QUA) ---
Progress Notes Subjective Date 03/08/17 Time 0759 Note Patient feels well, ready to go home. Objective Findings Laboratory Tests 03/08/17 0630: Sodium 134 L, Potassium 3.9, Chloride 98, Carbon Dioxide 30, BUN 36 H, Creatinine 2.2 H, Estimated Creat Clear 22 L, Estimated GFR (MDRD) 22 L, Glucose 110 H, Calcium 9.9 Vital Signs Date Time Temp Pulse Resp B/P Pulse O2 O2 Flow FiO2 Ox Delivery Rate 03/08 0735 97.9 57 18 164/89 91 ROOM AIR 03/08 0415 97.6 62 18 156/82 97 ROOM AIR 03/08 0307 53 03/08 0028 97.3 60 16 142/74 95 ROOM AIR 03/07 2010 98.4 62 16 171/98 95 03/07 2010 98.4 62 16 171/98 95 ROOM AIR 03/07 1633 97.3 49 18 154/81 94 03/07 1600 54 18 158/86 98 ROOM AIR 03/07 1538 97.3 03/07 1530 97.3 52 18 138/74 94 ROOM AIR 03/07 1500 53 16 153/84 93 ROOM AIR 03/07 1430 54 16 146/81 94 ROOM AIR 03/07 1400 54 16 142/81 94 ROOM AIR 03/07 1330 59 16 139/91 96 ROOM AIR 03/07 1300 57 18 149/76 97 ROOM AIR 03/07 1230 54 18 160/82 98 ROOM AIR 03/07 1200 58 18 147/89 95 ROOM AIR 03/07 1130 56 18 146/78 94 ROOM AIR 03/07 1100 56 18 149/80 94 ROOM AIR 03/07 1030 55 18 144/79 94 ROOM AIR 03/07 1012 51 16 135/70 95 ROOM AIR 03/07 0934 54 18 142/73 94 ROOM AIR 03/07 0902 59 18 147/85 96 ROOM AIR 03/07 0837 98.0 67 16 147/84 93 03/07 0830 98.0 67 16 147/84 98 ROOM AIR 03/07 0800 61 18 160/92 95 ROOM AIR I&O Past 24 Hrs-ending at 0700 03/08 0700 Intake Total 730 Output Total Balance 730 Last VS-Temp:97.9 B/P:164/89 Pulse:57 Resp:18 SaO2:91 ROOM AIR Last weight lbs:143 oz:8 [id number] Method:Bed Scales Exam General appearance: alert, awake, no acute distress Cardiovascular: regular rate & rhythm Respiratory: clear to auscultation Extremities: no peripheral edema Assessment/Plan Problem List 1. Malignant hypertensive urgency Status: Acute 2. CRI (chronic renal insufficiency) Status: Chronic 3. Coronary arteriosclerosis Status: Chronic 4. Nicotine dependence, uncomplicated Status: Chronic 5. Cardiomyopathy due to hypertension 6. Hyperlipidemia This inpt stay is expected to cross 2 MNs from start of care Yes Comments: OK to discharge home, f/u with Dr. Vo in 6 days. at 0800
[2017-03-08] MEDS ORDERED: CARVEDILOL6.25 MG PO (08:01)
[2017-03-08] MEDS ORDERED: HYDROCHLOROTHIA25 M1 PO (08:02)
[2017-03-08] MEDS ORDERED: LIPITOR40 M1 PO (08:02)
[2017-03-08] MEDS ORDERED: AMLODIPINE BES10 MG PO (08:02)
[2017-03-08 08:18] VITALS: BP 164/89
--- NOTE | 2017-03-08 08:23 | ACUTE CARE PROGRESS NOTE (QUA) ---
Progress Notes Subjective Date 03/08/17 Time 0821 Note 76-year-old white female in bed in no acute distress. Patient has been off the Nipride gtt since yesterday morning. She denies any chest pain, pressure or tightness. She is anxious to go home. Objective Findings Last VS-Temp:97.9 B/P:164/89 Pulse:57 Resp:18 SaO2:91 ROOM AIR Last weight lbs:143 oz:8 [id number] Method:Bed Scales Exam General appearance: alert, awake, no acute distress Cardiovascular: regular rate & rhythm Respiratory: clear to auscultation Reviewed: medications, vital signs, lab results Assessment/Plan Problem List 1. Malignant hypertensive urgency Status: Acute Assessment/Plan: Improved but not to goal on multiple medications. Stable for discharge. 2. CRI (chronic renal insufficiency) Status: Chronic Qualifiers: Chronic kidney disease stage: unspecified stage Qualified Code: N18.9 - Chronic kidney disease, unspecified 3. Coronary arteriosclerosis Status: Chronic Assessment/Plan: Clinically stable. 4. Nicotine dependence, uncomplicated Status: Chronic 5. Cardiomyopathy due to hypertension Assessment/Plan: Unable to add ERASTO inhibitor, ARB or Tekturna due to chronic renal insufficiency. Qualifiers: Heart failure presence: without heart failure Qualified Code: I11.9 - Hypertensive heart disease without heart failure 6. Hyperlipidemia Qualifiers: Hyperlipidemia type: mixed hyperlipidemia Qualified Code: E78.2 - Mixed hyperlipidemia Patient condition Stable Plan: agree with discharge home. Recommend follow-up in one to 2 weeks for reevaluation of blood pressure. Patient does have a blood pressure machine at home and will continue to monitor at home. This inpt stay is expected to cross 2 MNs from start of care Yes at 0823
[2017-03-08 10:39] VITALS: BP 164/89
--- NOTE | 2017-03-09 10:35 | DISCHARGE SUMMARY STANDARD ---
Discharge Summary (FCA2) Date of admission: 03/04/17 Date of discharge: 03/08/17 Problem List: 1. Malignant hypertensive urgency 2. CRI (chronic renal insufficiency) 3. Coronary arteriosclerosis 4. Nicotine dependence, uncomplicated 5. Cardiomyopathy due to hypertension 6. Hyperlipidemia History of present illness: In the ER patient was started on nitroglycerin drip after consultation by phone with Dr. Pozo. Patient was not forthcoming with any chest discomfort prior to admission. She denied any chest pain since admission. Initial troponin was within normal range. Electrocardiogram showed sinus rhythm with LEFT axis deviation and left ventricular hypertrophy with repolarization abnormality. Cardiology was consulted for evaluation and recommendations. Patient remained on nipride drip. Telemetry showed brief bradycardia into the high 30s to low 40s at times. History of Present Illness: 76 year old female with a history of CAD and HTN presented to [facility] urgent treatment clinic complaining of elevated blood pressure. A home health nurse was visiting her home to see a different resident and the patient asked for her blood pressure to be checked due to not feeling well. BP was in the 240/120 range and she was instructed to come to the ER by the nurse. Patient has been followed by a Dr. Harrison in [facility] for her primary care. She had been using Metoprolol once daily to control her BP, but it had been prescribed twice daily. Patient was a former patient of Dr. Vo's at [facility] and would like to reestablish care due to recently moving back into the community. After arriving at the [facility], patient's BP was very elevated and was unable to be controlled with oral medication. Dr. Pozo was consulted and he recommened admission to [facility] with a Nitroprusside drip for BP control. She denied any chest pain. Initial troponin was within normal range. Electrocardiogram showed sinus rhythm with LEFT axis deviation and left ventricular hypertrophy with repolarization abnormality. Exam on admission: Vital Signs Date Time Temp Pulse Resp B/P Pulse O2 O2 Flow FiO2 Ox Delivery Rate 03/05 1000 78 18 146/89 95 ROOM AIR 03/05 0900 84 18 147/79 94 ROOM AIR 03/05 0835 80 18 160/94 94 ROOM AIR 03/05 0835 97.6 60 16 178/95 97 03/05 0800 60 16 178/95 97 ROOM AIR 03/05 0800 60 16 178/95 97 09/17 0758 97.6 58 18 143/76 95 09/17 0723 97.6 09/17 0700 97.6 58 18 143/76 95 ROOM AIR 09/17 0615 56 22 135/78 92 ROOM AIR 09/17 0552 54 156/80 94 ROOM AIR 09/17 0535 76 109/62 93 ROOM AIR 09/17 0515 60 20 180/98 93 ROOM AIR 09/17 0500 61 187/103 93 ROOM AIR 09/17 0415 97.9 71 20 143/65 94 09/17 0315 61 20 143/65 94 ROOM AIR 09/17 0215 73 22 149/79 95 ROOM AIR 09/17 0145 68 143/92 94 ROOM AIR 09/17 0115 65 18 163/94 94 ROOM AIR 09/17 0100 73 18 156/84 94 ROOM AIR 09/17 0030 75 20 166/94 95 ROOM AIR 09/17 0010 98.4 77 20 154/82 96 ROOM AIR 09/16 2355 75 18 162/89 94 ROOM AIR 09/16 2340 80 20 171/104 97 ROOM AIR 09/16 2320 71 20 197/109 95 ROOM AIR 09/16 2305 76 18 193/115 95 ROOM AIR 09/16 2250 67 18 193/107 94 ROOM AIR 09/16 2235 68 20 188/96 94 ROOM AIR 09/16 2220 66 22 196/105 95 ROOM AIR 09/16 2205 65 20 188/110 97 ROOM AIR 09/16 2200 67 22 200/114 97 ROOM AIR 09/16 2145 80 20 208/118 98 ROOM AIR 09/16 2144 72 09/16 2144 98.6 63 20 201/111 09/16 2144 96 ROOM AIR 09/16 2140 98.6 84 18 207/113 97 ROOM AIR 09/16 2135 98.6 77 18 218/121 96 ROOM AIR 09/16 2021 98.6 72 22 213/122 96 ROOM AIR 09/16 1949 97.7 79 14 194/100 97 09/16 1933 79 14 200/106 97 09/16 1825 97.7 66 20 226/134 96 09/16 1756 97.7 66 20 226/134 96 09/16 1715 68 20 234/132 96 09/16 1630 57 18 222/114 96 09/16 1440 97.7 76 16 115/96 98 09/16 1428 97.7 76 16 115/96 98 1ST Vital Signs Result Date Time Pulse Ox 98 03/04 1428 B/P 115/96 03/04 1428 Temp 97.7 03/04 1428 Pulse 76 03/04 1428 Resp 16 03/04 1428 O2 Delivery ROOM AIR 03/04 2021 Exam: General appearance: alert, awake, no acute distress Eyes: anicteric ENT: mucous membranes moist Neck: supple Cardiovascular: regular rate & rhythm Respiratory: good air movement, basilar rales (few) ABD: normal bowel sounds, soft, no tenderness Extremities: no peripheral edema (ANA PAULA hose in place) Skin: warm Hospital Course: Patient remained on nitroprusside gtt on admission. She continually denied CP. Patient was seen by cardiology 03/06/17 with assessment of 1. Malignant hypertension, currently on nitroprusside drip; 2. Known coronary artery disease, clinically stable; 3. Continued tobacco use, nicotine patches recommended; 4. History of peripheral arterial disease status post aorto iliac stenting; 5. Chronic kidney disease, stage III with recent CT of the abdomen showing RIGHT kidney atrophy Recommendations were to increase Norvasc to 10 mg twice a day; add hydrochlorothiazide 50 mg daily; change metoprolol to Coreg 6.25 mg twice a day and titrate up as blood pressure and pulse allow; obtain an echocardiogram to evaluate LEFT ventricular size, function and valve status. Nitroprusside gtt was gradually weaned as BP stabilized with med changes. Patient did feel better with the improved BP and continually denied chest discomfort. Cardiology followed her throughout her stay. On 03/08/17 patient was feeling good and wanting to go home and she was discharged. Laboratory data this visit: 03/05/17 0530: Sodium 139, Potassium 3.6, Chloride 103, Carbon Dioxide 27, BUN 27 H, Creatinine 1.9 H, Estimated Creat Clear 25 L, Estimated GFR (MDRD) 26 L, Glucose 113 H, Calcium 9.0, WBC 6.2, RBC 4.42, Hgb 12.3, Hct 37.6, MCV 84.9, RDW 13.6, Plt Count 252, MPV 7.4, Gran % 53.3, Gran # 3.3, Lymphocytes % 25.2, Monocytes % 7.7, Eosinophils % 12.8 H, Basophils % 1.1, Lymphocytes # 1.6, Monocytes # 0.5, Eosinophils # 0.8 H, Basophils # 0.1, PUBS MCHC 32.6, MCH 27.7 03/04/17 1552: Urine Color YELLOW, Urine Appearance Clear, Urine pH 7.0, Ur Specific [place] 1.015, Urine Protein 30, Urine Ketones NEGATIVE, Urine Blood TRACE H, Urine Nitrate NEGATIVE, Urine Bilirubin NEGATIVE, Urine Urobilinogen 0.2, Ur Leukocyte Esterase NEGATIVE, Urine Glucose NEGATIVE 03/04/17 1500: Sodium 139, Potassium 4.3, Chloride 102, Carbon Dioxide 29, BUN 26 H, Creatinine 2.2 H, Estimated Creat Clear 24 L, Estimated GFR (MDRD) 22 L, Glucose 100, Calcium 8.8, Total Bilirubin 0.3, AST 15, ALT 16, Alkaline Phosphatase 179 H, Creatine Kinase 113, CK-MB (CK-2) Rel Index 1.4, CK and CKMB Interp 1.6, Troponin I 0.05, Total Protein 8.1, Albumin 3.7, Globulin 4.4 H, Albumin/Globulin Ratio 0.8 L, WBC 7.3, RBC 4.63, Hgb 13.1, Hct 39.3, MCV 84.8, RDW 13.6, Plt Count 271, MPV 7.5, Gran % 60.3, Gran # 4.4, Lymphocytes % 22.1, Monocytes % 5.7, Eosinophils % 10.8, Basophils % 1.1, Lymphocytes # 1.6, Monocytes # 0.4, Eosinophils # 0.8 H, Basophils # 0.1, PUBS MCHC 33.2, MCH 03/06/17 0440: Sodium 137, Potassium 4.2, Chloride 104, Carbon Dioxide 27, BUN 29 H, Creatinine 1.9 H, Estimated Creat Clear 25 L, Estimated GFR (MDRD) 26 L, Glucose 108 H, Calcium 9.0 03/08/17 0630: Sodium 134 L, Potassium 3.9, Chloride 98, Carbon Dioxide 30, BUN 36 H, Creatinine 2.2 H, Estimated Creat Clear 22 L, Estimated GFR (MDRD) 22 L, Glucose 110 H, Calcium 9.9 Imagin03/04/17 CXR IMPRESSION: Stable generalized cardio megaly overall heart size unchanged from the previous study in 2013, chronic changes right lung as described, doubt pneumonic infiltrate 03/06/17 ECHO CONCLUSION: 1. Mildly enlarged left atrium, mildly dilated left ventricle, visually estimated ejection fraction 40%, left ventricle is mildly globally hypokinetic, there is mild concentric left ventricular hypertrophy present, grade 1 diastolic dysfunction seen without tissue Doppler evidence of raised left atrial pressure. 2. Thickened and calcified aortic valve without aortic stenosis aortic insufficiency. 3. Mild mitral and tricuspid regurgitation. 4. No significant pericardial effusion noted. Discharge medications: Stop taking the following medications: Metoprolol Tartrate (Lopressor) 25 MG TABLET ORAL TWICE A DAY Qty = 60 AMLODIPINE BESYLATE (Norvasc) 10 MG TABLET ORAL DAILY Days = 7 Start taking the following new medications: Carvedilol (Carvedilol 6.25MG) 6.25 MG TABLET 6.25 MILLIGRAM ORAL TWICE A DAY Qty = 60 No Refills HYDROCHLOROTHIAZIDE (Hydrochlorothiazide) 25 MG TABLET 25 MILLIGRAM ORAL DAILY Qty = 30 No Refills Atorvastatin Calcium (Lipitor 40MG) 40 MG TABLET 40 MILLIGRAM ORAL AT BEDTIME NIGHTLY Qty = 30 No Refills Amlodipine Besylate (Amlodipine Besylate) 10 MG TABLET 10 MILLIGRAM ORAL TWICE A DAY Qty = 60 No Refills Disposition: Patient was discharged to home in stable and satisfactory condition. Follow up: 6 DAYS with Activity: Cont Current activity Diet: Continue same diet Discharge to: HOME Agency needed? N To monitor BP at home at 1039
== END 2017-03-08 10:25 | disposition home health service (06) | DRG 303 ==
LOC: UTC 14:24 → ER 14:24 → UTC 14:38 → ER 14:38 → 2ND 19:16 → ER 19:16 → 2ND 19:40
PROVIDERS: Emergency Medicine; Family Medicine; Nurse Practitioner Family
DX: I25.10 Atherosclerotic heart disease of native coronary artery without angina pectoris (principal); I11.9 Hypertensive heart disease without heart failure; N18.3 Chronic kidney disease, stage 3 (moderate); I13.10 Hypertensive heart and chronic kidney disease without heart failure, with stage 1 through stage 4 chronic kidney disease, or unspecified chronic kidney disease; Z72.0 Tobacco use; Z95.828 Presence of other vascular implants and grafts

== ENCOUNTER → 2017-03-10 | Outpatient (CLI) | payer MEDICARE ==
[~2017-03-10] MED LIST changes: +AMLODIPINE BES10 MG PO; +CARVEDILOL6.25 MG PO; +LIPITOR40 M1 PO; +NORVASC 10MG. T10 MG PO
[2017-03-10 11:32] LABS: HEMOGLOBIN 13.5 g/dL (12.2-16.2); LYMPH # 1.8 K/mm3 (0.7-4.5); LYMPH % 24.5 % (10-50.0)
[2017-03-10 14:06] LABS: BUN 45 mg/dL (7-18)
[2017-03-10 14:12] LABS: GFR (ESTIMATED) 21 ML/MIN (59-)
== END ==
LOC: LAB 10:30
PROVIDERS: Nurse Practitioner Family
DX: R55 Syncope and collapse (principal); Z79.899 Other long term (current) drug therapy

== ENCOUNTER → 2017-03-22 | Outpatient (CLI) | payer MEDICARE ==
--- NOTE | 2017-03-22 10:29 | RADIOLOGY REPORT PS360 ---
US [id number] HISTORY: CKD III, RENAL ATROPHY, RENAL CYSTS Patient Age: 76 years: Female Ordering Physician: MARITZA REID APRN TECHNIQUE: Ultrasound both kidneys COMPARISON :CT abdomen October 26, 2016 and October 30, 2014 history of aortoiliac endograft for abdominal aortic aneurysm. FINDINGS RIGHT KIDNEY Smaller atrophic appearing Right kidney. 7 cm length x 3.15 cm x 4.1 cm Diffuse cortical thinning most pronounced at right kidney 1.4 x 1.3 cm benign-appearing renal cyst cyst off the lateral margin lower portion right kidney. LEFT KIDNEY minimal diffuse cortical thinning 1.6 X 1.5 cm slight debris-filled benign appearing cyst towards lower pole left kidney appears stable since prior CTs. IMPRESSION: 1. Smaller atrophic RIGHT KIDNEY. With Pronounced cortical thinning most evident on right . Stable appearing Benign right renal cyst 1.4 cm diameter ..Suggestion of slight diminished color Doppler flow right kidney 2. LEFT KIDNEY. Suggestion of only scant trace diffuse cortical thinning. Upper normal echogenicity cortex may reflect intrinsic medical renal disease.. Benign-appearing cyst lower portion left kidney 1.6 cm compatible with prior CT
== END ==
LOC: RAD 09:04
DX: R29.898 Other symptoms and signs involving the musculoskeletal system (principal); R26.81 Unsteadiness on feet

== ENCOUNTER → 2017-03-30 | Outpatient (CLI) | payer MEDICARE ==
[2017-03-30 15:06] LABS: BUN 23 mg/dL (7-18)
[2017-03-30 15:25] LABS: GFR (ESTIMATED) 24 ML/MIN (59-)
== END ==
LOC: LAB 11:23
PROVIDERS: Nurse Practitioner Family
DX: N18.3 Chronic kidney disease, stage 3 (moderate) (principal)

== ENCOUNTER → 2017-05-04 | Outpatient (CLI) | payer MEDICARE ==
[2017-05-04 14:25] LABS: BUN 22 mg/dL (7-18)
[2017-05-04 14:30] LABS: GFR (ESTIMATED) 23 ML/MIN (59-)
== END ==
LOC: LAB 11:18
PROVIDERS: Nurse Practitioner Family
DX: N18.3 Chronic kidney disease, stage 3 (moderate) (principal)

== ENCOUNTER → 2017-05-23 | Outpatient (CLI) | payer MEDICARE ==
--- NOTE | 2017-05-25 12:36 | RADIOLOGY REPORT PS360 ---
History and Indications: Coronary artery disease, hypertension, tobacco use, family history, fatigue Procedure: Patient received a 0.4 mg of Lexiscan, resting heart rate was 57 beats per, resting blood pressure 153/83, with Lexiscan maximum heart rate achieved was 75 bpm which is 85% of the maximum predicted heart rate and a blood pressure was 146/71. With Lexiscan patient complained of mild shortness of breath and stomach discomfort Electrocardiogram: Resting electrocardiogram showed sinus rhythm left atrial enlargement, with Lexiscan there is less than 1.[address] segment depression noted from the baseline EKG. The EKG portion of the Lexiscan Myoview is nondiagnostic Cardiac stress and resting SPECT images: Cardiac stress and rest SPECT images were obtained using technetium 99 Myoview 10.2 mCi at rest, 32.5 mCi at stress, gated SPECT further analysis of segmental wall motion and calculation of the ejection fraction also done. Cardiac stress and the suspect show a fixed defect involving the posterolateral wall, consistent with area of prior myocardial scarring, in addition there is decreased tracer activity in the anterolateral wall on the resting images suggestive of reversible ischemia. Computer derived ejection fraction 44% with mild posterolateral wall hypokinesis. Right ventricle is mildly enlarged with normal contractility. Conclusion: 1. The EKG portion of the Lexiscan Myoview is nondiagnostic. 2. Scintigraphic evidence of prior myocardial scarring involving the posterolateral wall, in addition there is reversible ischemia involving the anterolateral wall. Computer derived ejection fraction is 44% with segmental wall motion abnormalities described above, right ventricle is mildly enlarged with normal contractility. 3. Abnormal Lexiscan Myoview study.
== END ==
LOC: RAD 07:30
DX: I25.10 Atherosclerotic heart disease of native coronary artery without angina pectoris (principal); R53.83 Other fatigue; I73.9 Peripheral vascular disease, unspecified; I71.4 Abdominal aortic aneurysm, without rupture; I11.9 Hypertensive heart disease without heart failure; E78.5 Hyperlipidemia, unspecified
CPT/HCPCS: A9502; J2785

== ENCOUNTER → 2017-05-31 | Day surgery (SDC) | payer MEDICARE ==
[2017-05-31 08:12] LABS: HEMOGLOBIN 12.1 g/dL (12.2-16.2); LYMPH # 1.8 K/mm3 (0.7-4.5); LYMPH % 15.1 % (10-50.0)
[2017-05-31 08:34] LABS: BUN 18 mg/dL (7-18)
[2017-05-31 08:35] LABS: GFR (ESTIMATED) 26 ML/MIN (59-)
--- NOTE | 2017-05-31 12:13 | RADIOLOGY REPORT PS360 ---
CARDIAC CATHETERIZATION DATE OF CATHETERIZATION:05/31/2017 10:02 AM PROCEDURES: 1. Left heart catheterization 2. Left ventriculogram 3. Selective coronary angiogram 4. Drug-eluting stent deployment to the mid circumflex artery INDICATION FOR TEST: Angina pectoris class III and IV 2 antianginal medications High risk abnormal Myoview with lateral ischemia Coronary artery disease Informed consent was obtained prior to the procedure. COMPLICATIONS: None ESTIMATED BLOOD LOSS: Less than 10 ml. TECHNIQUE: One percent lidocaine used to anesthetize the right anterior aspect of the wrist. The right radial artery was accessed via the Seldinger technique. A 6 Swiss sheath was placed in the right radial artery. 2.5 mg of verapamil, 800 mcg of nitroglycerin and 5000 U Heparin were given through the arterial sheath. The trap catheter was also used to perform left heart catheterization F ventriculogram and selective coronary angiogram. At the end of the diagnostic angiogram and additional 2000 units of heparin was administered intravenously giving an ACT of 246 seconds. An additional 2000 units of heparin was administered. An [employer] left guide catheter was used intubate the left main artery and a choice PT wire was placed in the circumflex artery. A 2.25 x 15 mm resolute [place] stent was deployed at extreme atmospheres reducing the hazy 70-80% stenosis to 0%. Excellent angiographic results were obtained with KEEGAN-3 flow down the vessel before and after the procedure. At the end of the procedure the apparatus was removed the sheath was removed good hemostasis was achieved using TR banding patient was transferred to the postop holding area in stable condition. Brilinta 180 mg along with aspirin 325 mg was administered orally while patient was on the table ANGIOGRAPHIC RESULTS: 1. The left main artery normal 2. The left anterior descending artery has proximal 10-20% stenosis with a mid vessel concentric 50% stenosis immediately adjacent to a large septal powered bridge specialist which collateralizes the distal right coronary artery 3. The circumflex artery is a nondominant vessel giving rise to a large solitary obtuse marginal artery which has a hazy 70-80% concentric stenosis 4. The right coronary artery is dominant and proximally occluded and fills via left to right collaterals primarily through the LAD system 5. The PERALTA ventriculogram reveals normal 65% 6. The left ventricular end-diastolic pressure millimeters mercury IMPRESSION: 1. Severe 2 vessel coronary artery disease including the right coronary artery and circumflex artery with moderate disease in the mid LAD 2. Successful stenting of the circumflex artery severe stenosis reduced to 0% with 1 drug-eluting stent 3. Persistent and chronically occluded dominant right coronary artery which fills via a large collateral network primarily through the LAD and septal perforators 4. Persistent moderate disease in the mid LAD 5. Normal ejection fraction 6. Normal left ventricular end-diastolic pressure PLAN: 1. Brilinta and aspirin 2. LDL less than 55 3. Risk factor modification 4. If patient continues to experience recalcitrant angina pectoris I would consider stenting the mid LAD. This stenosis is immediately adjacent to a large septal powered bridge specialist which does collateralize the distal right coronary artery. It is doubtful yet still possible plaque shift could close the septal powered bridge specialist therefore medical management is most warranted and less angina becomes recalcitrant 5. Cardiac rehabilitation 6. Avoidance of tobacco products
[2017-05-31 14:19] VITALS: BP 139/70
== END ==
LOC: CATHLAB 07:41
PROVIDERS: Internal Medicine
PROC: 027034Z Dilation of Coronary Artery, One Artery with Drug-eluting Intraluminal Device, Percutaneous Approach (ICD-10-PCS; principal; 2017-05-31 09:45)
PROC: 4A023N7 Measurement of Cardiac Sampling and Pressure, Left Heart, Percutaneous Approach (ICD-10-PCS; principal; 2017-05-31 09:45)
PROC: B2151ZZ Fluoroscopy of Left Heart using Low Osmolar Contrast (ICD-10-PCS; principal; 2017-05-31 09:45)
PROC: B2111ZZ Fluoroscopy of Multiple Coronary Arteries using Low Osmolar Contrast (ICD-10-PCS; principal; 2017-05-31 09:45)
DX: I25.119 Atherosclerotic heart disease of native coronary artery with unspecified angina pectoris (principal); R94.39 Abnormal result of other cardiovascular function study; Z72.0 Tobacco use
CPT/HCPCS: C1725; C1769; C1876; J1644; Q9967

== ENCOUNTER 2017-06-08 07:27 | Day surgery (SDC) | payer MEDICARE ==
[~2017-06-08] VITALS: Ht 160 cm; Wt 66.2 kg
--- NOTE | 2017-06-08 09:31 | Anesthesia Record ---
Anesthesia Record Part II Discharge time: 949 Destination: Same day surgery PACU nurse assessment review? Yes Patient is: Stable Anesthesia complications? No at 0978
--- NOTE | 2017-06-08 09:31 | Anesthesia Record ---
Anesthesia Record Part I Total IV fluids: 800 EBL (ml): 5 Urine Output: 0 B/P: 136/73 % SaO2: 98 Pulse: 70 Resps: 16 Temp: 97 Patient is: Drowsy, Stable Stable to PACU at: 0920 at 0931
[2017-06-08 14:33] VITALS: BP 127/73
== END 2017-06-08 10:45 | disposition home or self-care (01) ==
LOC: SDC 07:27
PROVIDERS: Otolaryngology
PROC: 0WB30ZX Excision of Oral Cavity and Throat, Open Approach, Diagnostic (ICD-10-PCS; principal; 2017-06-08 09:00)
DX: K13.21 Leukoplakia of oral mucosa, including tongue (principal)
CPT/HCPCS: J2405; J2710